=== PATIENT | female | born 1965 | race Caucasian/White ===

== ENCOUNTER 2019-06-11 14:07 | Emergency (ER) | payer MEDICAID ==
[~2019-06-11] VITALS: Ht 170.2 cm; Wt 120.2 kg
[~2019-06-11 14:07] MED LIST: DIVA500T53 PO; ENAL10TA PO; FAM20T PO; HYDR-3682 PO; LABE200T18 PO; LEVO500T21 PO; RIS1T PO; SERT-160 PO; SERT100T; TRAM-297 PO
[2019-06-11] MEDS ORDERED: cloNIDine HCL 0.1 MG TAB PO ONE ×2 (14:30→19:30)
[2019-06-11] MEDS ORDERED: LIDOCAINE 1% HCL (LOCAL ANESTH.) INJ 20ML MDV ONE (18:48)
[2019-06-11] MEDS ORDERED: LIDOCAINE 1% HCL (LOCAL ANESTH.) INJ 20ML MDV IJ ONE (19:00)
[2019-06-11] MEDS ORDERED: NEOMYCIN-BACITRACIN-POLYM UNITDOSE PKG TOP OINT TOP ONE (19:15)
[2019-06-11] MEDS ORDERED: cloNIDine HCL 0.1 MG TAB ONE (19:22)
[2019-06-11] MEDS ORDERED: LABETALOL HCL 5 MG/ML 4ML SYRINGE IV ONE (20:30)
[2019-06-11 21:07] LABS: Basophils # (auto) 0.2 uL; Basophils % (auto) 1.6 % (0.0-2.0); Eosinophils # (auto) 0.2 uL; Eosinophils % (auto) 2.3 % (0.0-7.0); Hematocrit 44.6 % (36.0-46.0); Hemoglobin 15.5 g/dL (12.2-16.2); Lymphocytes # (auto) 2.4 uL; Lymphocytes % (auto) 25.4 % (10.0-50.0); Mean Corpuscular Hemoglobin 29.7 pg (28.0-32.0); Mean Corpuscular Hgb Conc. 34.8 g/dL (32.0-36.0); Mean Corpuscular Volume 85.3 fL (80.0-100.0); Monocytes # (auto) 0.8 uL; Monocytes % (auto) 8.2 % (0.0-12.0); Neutrophils % (auto) 62.5 % (37.0-80.0); Platelet Count (auto) 328 10^3/uL (140-450); Red Blood Cells 5.23 10^6/uL (4.0-5.20); Red Cell Distribution Width 14.1 % (11.8-14.3); White Blood Cell 9.6 10^3/uL (4.4-10.8)
[2019-06-11 21:24] LABS: Albumin 3.5 g/dL (3.4-5.0); Calcium 8.6 mg/dL (8.5-10.1); Potassium 3.9 mmol/L (3.5-5.1)
[2019-06-11 21:30] LABS: Bilirubin, Total 0.4 mg/dL (0.2-1.0)
[2019-06-11 21:37] LABS: BUN/Creatinine Ratio 18.5
[2019-06-11] MEDS ORDERED: HYDROcodone-ACET 5/325MG TAB PO ONE (21:45)
[2019-06-11] MEDS ORDERED: AMOXICILLIN/CLAVUL 875 MG TAB PO ONE (21:45)
[2019-06-11 22:37] VITALS: BP 137/76
== END 2019-06-11 20:12 | disposition home or self-care (01) ==
LOC: ER 14:07
DX: S81.811A Laceration without foreign body, right lower leg, initial encounter (principal); I11.0 Hypertensive heart disease with heart failure; I50.9 Heart failure, unspecified; F17.210 Nicotine dependence, cigarettes, uncomplicated; Z79.899 Other long term (current) drug therapy; W54.0XXA Bitten by dog, initial encounter; Y93.89 Activity, other specified; Y92.89 Other specified places as the place of occurrence of the external cause; Y99.8 Other external cause status
CPT/HCPCS: 12032; 36415; 73590; 80053; 84484; 85025; 93005; 96374; 99285; J2001

== ENCOUNTER → 2019-08-27 | Emergency (ER) | payer MEDICAID ==
[~2019-08-27] VITALS: Ht 170.2 cm; Wt 120.2 kg
[~2019-08-27] MED LIST changes: +LABETALOL HCL 5 MG/ML 4ML SYRINGE IV ONE; +amLODIPine BESYLATE 5 MG TAB PO ONE
[2019-08-27 10:56] LABS: Basophils # (auto) 0.1 10 ^3/uL (0-0.2); Basophils % (auto) 0.7 % (0.0-2.0); Eosinophils # (auto) 0.3 10 ^3/uL (0-0.8); Eosinophils % (auto) 3.1 % (0.0-7.0); Hematocrit 46.2 % (36.0-46.0); Hemoglobin 15.7 g/dL (12.2-16.2); Lymphocytes # (auto) 2.1 10 ^3/uL (0.4-5.4); Lymphocytes % (auto) 24.2 % (10.0-50.0); Mean Corpuscular Volume 85.4 fL (80.0-100.0); Monocytes # (auto) 0.6 10 ^3/uL (0-1.3); Neutrophils # (auto) 5.6 10 ^3/uL (1.6-8.6); Nucleated Red Blood Cells % 0.1 %; Platelet Count (auto) 370 10^3/uL (140-450); Red Blood Cells 5.42 10^6/uL (4.0-5.20); White Blood Cell 8.6 10^3/uL (4.4-10.8)
[2019-08-27 11:03] LABS: Albumin 3.5 g/dL (3.4-5.0); Anion Gap 5 (5-15); Blood Urea Nitrogen 27 mg/dL (7-18); Calcium 8.3 mg/dL (8.5-10.1); Carbon Dioxide 25 mmol/L (21-32); Chloride 108 mmol/L (98-107); Glucose 116 mg/dL (74-106); Sodium 138 mmol/L (136-145)
[2019-08-27 11:09] LABS: Alanine Aminotransferase 38 U/L (13-56); Alkaline Phosphatase 91 U/L (45-117); Aspartate Aminotransferase 19 U/L (15-37); BUN/Creatinine Ratio 32.1; Bilirubin, Total 0.4 mg/dL (0.2-1.0); GFR African American 91 mL/min; GFR Non-African American 75 mL/min; Total Protein 7.5 g/dL (6.4-8.2)
[2019-08-27 12:05] VITALS: BP 187/93
== END | disposition home or self-care (01) ==
LOC: ER 09:43
DX: R04.0 Epistaxis (principal); I11.0 Hypertensive heart disease with heart failure; I50.9 Heart failure, unspecified; F17.210 Nicotine dependence, cigarettes, uncomplicated; Z90.49 Acquired absence of other specified parts of digestive tract; Z79.899 Other long term (current) drug therapy
CPT/HCPCS: 30901; 36415; 80053; 84484; 85025; 93005; 96374; 99284; J3490

== ENCOUNTER 2021-02-08 09:01 | Emergency (ER) | payer MEDICAID ==
[~2021-02-08] VITALS: Ht 172.7 cm; Wt 120.2 kg
[~2021-02-08 09:01] MED LIST changes: +DIVA500T2 PO; -DIVA500T53 PO; -ENAL10TA PO; +ENAL10TA12 PO; -FAM20T PO; +FAMO20TA10 PO; -LABE200T18 PO; +LABE200T7 PO; -LABETALOL HCL 5 MG/ML 4ML SYRINGE IV ONE; -LEVO500T21 PO; +LEVO500T31 PO; -amLODIPine BESYLATE 5 MG TAB PO ONE
[2021-02-08] MEDS ORDERED: cefTRIAXone 1GM/50ML D5W 50 ML IV ONE (10:00)
[2021-02-08] MEDS ORDERED: DexAMETHasone SOD PHOS 10MG/1ML VIAL INJ IV ONE (10:00)
[2021-02-08] MEDS ORDERED: AZITHROMYCIN 500MG/ 250ML 250 ML IV ONE (10:00)
[2021-02-08 10:20] LABS: Basophils # (auto) 0 10 ^3/uL (0-0.2); Basophils % (auto) 0.6 % (0.0-2.0); Eosinophils # (auto) 0 10 ^3/uL (0-0.8); Eosinophils % (auto) 0.1 % (0.0-7.0); Hematocrit 42.7 % (36.0-46.0); Hemoglobin 14.4 g/dL (12.2-16.2); Lymphocytes % (auto) 19.5 % (10.0-50.0); Mean Corpuscular Hemoglobin 29.1 pg (28.0-32.0); Mean Corpuscular Hgb Conc. 33.7 g/dL (32.0-36.0); Mean Corpuscular Volume 86.2 fL (80.0-100.0); Monocytes # (auto) 0.5 10 ^3/uL (0-1.3); Monocytes % (auto) 10.4 % (0.0-12.0); Neutrophils # (auto) 3.5 10 ^3/uL (1.6-8.6); Neutrophils % (auto) 69.4 % (37.0-80.0); Nucleated Red Blood Cells % 0.1 %; Red Blood Cells 4.95 10^6/uL (4.0-5.20); Red Cell Distribution Width 13.8 % (11.8-14.3)
[2021-02-08 10:45] LABS: Calcium 8.3 mg/dL (8.5-10.1); Potassium 3.8 mmol/L (3.5-5.1)
[2021-02-08 10:48] LABS: BUN/Creatinine Ratio 14.8; Bilirubin, Total 0.2 mg/dL (0.2-1.0); Total Protein 6.9 g/dL (6.4-8.2)
[2021-02-08 10:50] VITALS: BP 112/79
== END 2021-02-08 12:15 | disposition left against medical advice (07) ==
LOC: ER 09:01
DX: U07.1 COVID-19 (principal); J12.82 Pneumonia due to coronavirus disease 2019; R06.03 Acute respiratory distress; I11.0 Hypertensive heart disease with heart failure; I50.9 Heart failure, unspecified; F17.210 Nicotine dependence, cigarettes, uncomplicated; Z90.49 Acquired absence of other specified parts of digestive tract
CPT/HCPCS: 36415; 71045; 80053; 82728; 83605; 84484; 85025; 86141; 87040; 87426; 96365; 96368; 96375; 99291; J0456; J0696; J1100

== ENCOUNTER 2021-02-10 10:22 | Inpatient (IN) | payer MEDICAID ==
[~2021-02-10] VITALS: Ht 175.3 cm; Wt 112.5 kg
[2021-02-10] MEDS ORDERED: SODIUM CHLORIDE 0.9% 500 ML IV ONE (11:00)
[2021-02-10 11:24] LABS: Basophils # (auto) 0 10 ^3/uL (0-0.2); Basophils % (auto) 0.2 % (0.0-2.0); Eosinophils # (auto) 0 10 ^3/uL (0-0.8); Eosinophils % (auto) 0.1 % (0.0-7.0); Hematocrit 40.4 % (36.0-46.0); Hemoglobin 14.3 g/dL (12.2-16.2); Lymphocytes # (auto) 0.8 10 ^3/uL (0.4-5.4); Lymphocytes % (auto) 13.4 % (10.0-50.0); Mean Corpuscular Hgb Conc. 35.5 g/dL (32.0-36.0); Mean Corpuscular Volume 84.4 fL (80.0-100.0); Monocytes # (auto) 0.5 10 ^3/uL (0-1.3); Neutrophils # (auto) 4.7 10 ^3/uL (1.6-8.6); Neutrophils % (auto) 78.3 % (37.0-80.0); Nucleated Red Blood Cells % 0.1 %; Red Blood Cells 4.78 10^6/uL (4.0-5.20); Red Cell Distribution Width 13.8 % (11.8-14.3)
[2021-02-10 11:34] LABS: Albumin 2.8 g/dL (3.4-5.0); Potassium 3.9 mmol/L (3.5-5.1)
[2021-02-10 11:40] LABS: BUN/Creatinine Ratio 17.6; Bilirubin, Total 0.3 mg/dL (0.2-1.0); Total Protein 6.7 g/dL (6.4-8.2)
[2021-02-10 11:41] LABS: INR 0.98 (0.9-1.15); Partial Thromboplastin Time 29.2 sec (23.6-33.0)
[2021-02-10] MEDS ORDERED: hydrOXYchloroQUINE SULFATE 200 MG TAB PO ONE (12:00)
[2021-02-10] MEDS ORDERED: ZINC SULFATE 220mg CAP or TAB PO ONE (12:00)
[2021-02-10] MEDS ORDERED: cefTRIAXone 1GM/50ML D5W 50 ML IV ONE (12:00)
[2021-02-10] MEDS ORDERED: DexAMETHasone SOD PHOS 10MG/1ML VIAL INJ IV ONE (12:00)
[2021-02-10] MEDS ORDERED: ASCORBIC ACID 500 MG TAB PO ONE (12:00)
[2021-02-10] MEDS ORDERED: CHOLECALCIFEROL (VITD3) 2,000 UNIT CAP/TAB PO ONE (12:00)
[2021-02-10] MEDS ORDERED: AZITHROMYCIN 500MG/ 250ML 250 ML IV ONE (12:00)
[2021-02-10] MEDS: SODIUM CHLORIDE 0.9% 1,000 ML IV ONE ×2 (13:45→15:40)
[2021-02-10] MEDS ORDERED: ONDANSETRON HCL 4 MG/2 ML VIAL IV PRN (16:15)
[2021-02-10] MEDS ORDERED: TEMAZEPAM 15 MG CAP PO PRN (16:15)
[2021-02-10] MEDS ORDERED: MORPHINE SULFATE 4 MG/ML SYR/VIAL IV PRN (16:15)
[2021-02-10] MEDS ORDERED: MORPHINE SULFATE INJECTION 2 MG/ML SYRG IV PRN (16:15)
[2021-02-10] MEDS ORDERED: ACETAMINOPHEN 325 MG TAB PO PRN (16:15)
[2021-02-10] MEDS ORDERED: DOCUSATE SOD 100 MG CAP PO PRN (16:15)
[2021-02-10] MEDS ORDERED: REMDESIVIR PER PHARMACY 0 ML IV SCH (16:15)
[2021-02-10] MEDS ORDERED: NITROGLYCERIN 0.4 MG SL TAB SL PRN (16:15)
[2021-02-10 17:12] LABS: Thyroid Stimulating Hormone 1.89 uIU/mL (0.358-3.74)
[2021-02-10] MEDS ORDERED: REMDESIVIR 200 MG in NS 210ml LOADING DOSE ADULT IV ONE (17:30)
[2021-02-10 19:32] VITALS: BP 129/74
[2021-02-10] MEDS: ALBUTEROL SULF HFA 90MCG INH 200DOSE IN PRN (22:51)
[2021-02-10] MEDS: FAMOTIDINE (10MG/ML) 2ML VL IV SCH (22:59)
[2021-02-10] MEDS: DOXYCYCLINE 100MG/250ML 250 ML IV SCH (22:59)
[2021-02-10] MEDS: ENOXAPARIN SOD 40 MG/0.4 ML SYRINGE SC SCH (23:00)
[2021-02-10 23:20] VITALS: BP 142/97
[2021-02-11] VITALS (7 sets, daily range): BP systolic 117–150; BP diastolic 68–101
[2021-02-11] MEDS ORDERED: AMLO-496 PO (01:59)
[2021-02-11] MEDS ORDERED: LISI40TA11 PO (01:59)
[2021-02-11] MEDS ORDERED: LABE100T4 PO (01:59)
[2021-02-11] MEDS ORDERED: HYDR25TA5 PO (01:59)
[2021-02-11] MEDS: ALBUTEROL SULF HFA 90MCG INH 200DOSE IN PRN (06:51)
[2021-02-11 07:08] LABS: Basophils # (auto) 0 10 ^3/uL (0-0.2); Basophils % (auto) 0.3 % (0.0-2.0); Eosinophils # (auto) 0 10 ^3/uL (0-0.8); Eosinophils % (auto) 0.1 % (0.0-7.0); Hematocrit 39.2 % (36.0-46.0); Lymphocytes # (auto) 0.6 10 ^3/uL (0.4-5.4); Lymphocytes % (auto) 15.7 % (10.0-50.0); Mean Corpuscular Hgb Conc. 35.7 g/dL (32.0-36.0); Mean Corpuscular Volume 84.1 fL (80.0-100.0); Monocytes # (auto) 0.4 10 ^3/uL (0-1.3); Monocytes % (auto) 11.1 % (0.0-12.0); Neutrophils # (auto) 2.8 10 ^3/uL (1.6-8.6); Neutrophils % (auto) 72.8 % (37.0-80.0); Nucleated Red Blood Cells % 0.2 %; Red Blood Cells 4.66 10^6/uL (4.0-5.20); Red Cell Distribution Width 13.8 % (11.8-14.3); White Blood Cell 3.9 10^3/uL (4.4-10.8)
[2021-02-11 07:24] LABS: Potassium 4.2 mmol/L (3.5-5.1)
[2021-02-11 07:36] LABS: Urine Bacteria NONE SEEN /hpf (None Seen); Urine Blood Negative /uL (Negative); Urine Specific Gravity 1.021 (1.001-1.035); Urine WBC <1 /hpf (0 - 5)
[2021-02-11 07:38] LABS: Albumin 2.5 g/dL (3.4-5.0); BUN/Creatinine Ratio 22.6; Bilirubin, Total 0.2 mg/dL (0.2-1.0); Calcium 7.9 mg/dL (8.5-10.1); Total Protein 6.4 g/dL (6.4-8.2)
[2021-02-11] MEDS: DexAMETHasone SOD PHOS 10MG/1ML VIAL INJ IV SCH (09:06)
[2021-02-11] MEDS: DOXYCYCLINE 100MG/250ML 250 ML IV SCH ×2 (09:07→21:08)
[2021-02-11] MEDS: CHOLECALCIFEROL (VITD3) 2,000 UNIT CAP/TAB PO SCH (09:07)
[2021-02-11] MEDS: FAMOTIDINE (10MG/ML) 2ML VL IV SCH ×2 (09:07→21:08)
[2021-02-11] MEDS: ASCORBIC ACID 1,000 MG TAB PO SCH (09:07)
[2021-02-11] MEDS: ENOXAPARIN SOD 40 MG/0.4 ML SYRINGE SC SCH ×2 (09:08→21:07)
[2021-02-11] MEDS: REMDESIVIR 100mg 100 MG in SODIUM CHL 0.9% 230 ML IV SCH (15:03)
[2021-02-11] MEDS: LORazepam 0.5 MG TAB PO PRN (18:53)
[2021-02-12 04:55] VITALS: BP 143/79
[2021-02-12] MEDS: ALBUTEROL SULF HFA 90MCG INH 200DOSE IN PRN ×2 (06:01→11:12)
[2021-02-12] MEDS: LORazepam 0.5 MG TAB PO PRN ×2 (09:12→14:11)
[2021-02-12] MEDS: DexAMETHasone SOD PHOS 10MG/1ML VIAL INJ IV SCH (09:16)
[2021-02-12] MEDS: FAMOTIDINE (10MG/ML) 2ML VL IV SCH ×2 (09:17→23:20)
[2021-02-12] MEDS: CHOLECALCIFEROL (VITD3) 2,000 UNIT CAP/TAB PO SCH (09:17)
[2021-02-12] MEDS: DOXYCYCLINE 100MG/250ML 250 ML IV SCH ×2 (09:17→23:20)
[2021-02-12] MEDS: ASCORBIC ACID 1,000 MG TAB PO SCH (09:17)
[2021-02-12] MEDS: ENOXAPARIN SOD 40 MG/0.4 ML SYRINGE SC SCH ×2 (09:17→23:20)
[2021-02-12 13:00] VITALS: BP 148/70
[2021-02-12] MEDS: REMDESIVIR 100mg 100 MG in SODIUM CHL 0.9% 230 ML IV SCH (16:28)
[2021-02-12 22:00] VITALS: BP 155/91
[2021-02-13 05:00] VITALS: BP 154/95
[2021-02-13] MEDS: LORazepam 0.5 MG TAB PO PRN ×2 (06:16→12:26)
[2021-02-13] MEDS: ALBUTEROL SULF HFA 90MCG INH 200DOSE IN PRN ×2 (06:16→21:21)
[2021-02-13 06:32] LABS: Potassium 3.8 mmol/L (3.5-5.1)
[2021-02-13 06:39] LABS: Albumin 2.8 g/dL (3.4-5.0); BUN/Creatinine Ratio 27.6; Bilirubin, Total 0.4 mg/dL (0.2-1.0); Calcium 8.7 mg/dL (8.5-10.1); Total Protein 6.9 g/dL (6.4-8.2)
[2021-02-13 09:00] VITALS: BP 171/85
[2021-02-13] MEDS: CHOLECALCIFEROL (VITD3) 2,000 UNIT CAP/TAB PO SCH (10:21)
[2021-02-13] MEDS: ASCORBIC ACID 1,000 MG TAB PO SCH (10:21)
[2021-02-13] MEDS: hydrALAZINE HCL 20 MG/ML VL IV PRN ×2 (10:22→21:28)
[2021-02-13] MEDS: DexAMETHasone SOD PHOS 10MG/1ML VIAL INJ IV SCH (10:22)
[2021-02-13] MEDS: FAMOTIDINE (10MG/ML) 2ML VL IV SCH ×2 (10:22→21:28)
[2021-02-13] MEDS: DOXYCYCLINE 100MG/250ML 250 ML IV SCH ×2 (10:23→21:28)
[2021-02-13] MEDS: ENOXAPARIN SOD 40 MG/0.4 ML SYRINGE SC SCH ×2 (10:23→21:29)
[2021-02-13 13:00] VITALS: BP 167/96
[2021-02-13] MEDS: REMDESIVIR 100mg 100 MG in SODIUM CHL 0.9% 230 ML IV SCH (15:29)
[2021-02-13 17:00] VITALS: BP 156/99
[2021-02-13 19:39] VITALS: BP 156/99
[2021-02-13 22:00] VITALS: BP 176/105
[2021-02-14] MEDS: diphenhdrAMINE HCL 25 MG CAP PO PRN ×2 (00:51→20:35)
[2021-02-14 05:00] VITALS: BP 134/66
[2021-02-14 07:19] LABS: Basophils # (auto) 0 10 ^3/uL (0-0.2); Basophils % (auto) 0.1 % (0.0-2.0); Eosinophils # (auto) 0 10 ^3/uL (0-0.8); Eosinophils % (auto) 0.1 % (0.0-7.0); Hematocrit 43.8 % (36.0-46.0); Hemoglobin 15.5 g/dL (12.2-16.2); Lymphocytes # (auto) 1.7 10 ^3/uL (0.4-5.4); Lymphocytes % (auto) 20.2 % (10.0-50.0); Mean Corpuscular Hemoglobin 29.2 pg (28.0-32.0); Mean Corpuscular Hgb Conc. 35.5 g/dL (32.0-36.0); Mean Corpuscular Volume 82.5 fL (80.0-100.0); Monocytes # (auto) 1.3 10 ^3/uL (0-1.3); Monocytes % (auto) 14.7 % (0.0-12.0); Neutrophils # (auto) 5.6 10 ^3/uL (1.6-8.6); Neutrophils % (auto) 64.9 % (37.0-80.0); Nucleated Red Blood Cells % 1.8 %; Red Blood Cells 5.31 10^6/uL (4.0-5.20); Red Cell Distribution Width 13.8 % (11.8-14.3); White Blood Cell 8.7 10^3/uL (4.4-10.8)
[2021-02-14 07:37] LABS: Albumin 2.8 g/dL (3.4-5.0); BUN/Creatinine Ratio 25.6; Bilirubin, Total 0.5 mg/dL (0.2-1.0); CRP High Sensitivity 0.85 mg/dL (< 0.3); Calcium 8.2 mg/dL (8.5-10.1); Potassium 3.9 mmol/L (3.5-5.1); Total Protein 6.6 g/dL (6.4-8.2)
[2021-02-14] MEDS: LORazepam 0.5 MG TAB PO PRN ×2 (07:47→16:25)
[2021-02-14 09:00] VITALS: BP 144/95
[2021-02-14] MEDS: DOXYCYCLINE 100MG/250ML 250 ML IV SCH ×2 (10:35→21:11)
[2021-02-14] MEDS: DexAMETHasone SOD PHOS 10MG/1ML VIAL INJ IV SCH (10:35)
[2021-02-14] MEDS: ASCORBIC ACID 1,000 MG TAB PO SCH (10:35)
[2021-02-14] MEDS: ENOXAPARIN SOD 40 MG/0.4 ML SYRINGE SC SCH ×2 (10:35→21:12)
[2021-02-14] MEDS: CHOLECALCIFEROL (VITD3) 2,000 UNIT CAP/TAB PO SCH (10:35)
[2021-02-14] MEDS: FAMOTIDINE (10MG/ML) 2ML VL IV SCH ×2 (10:36→21:11)
[2021-02-14 13:00] VITALS: BP 160/102
[2021-02-14] MEDS: hydrALAZINE HCL 20 MG/ML VL IV PRN ×2 (13:38→22:12)
[2021-02-14] MEDS: REMDESIVIR 100mg 100 MG in SODIUM CHL 0.9% 230 ML IV SCH (15:26)
[2021-02-14 17:00] VITALS: BP 168/96
[2021-02-14] MEDS: ALBUTEROL SULF HFA 90MCG INH 200DOSE IN PRN ×2 (20:16→20:51)
[2021-02-14 22:00] VITALS: BP 179/113
[2021-02-15] MEDS: LORazepam 0.5 MG TAB PO PRN (00:32)
[2021-02-15] MEDS: diphenhdrAMINE HCL 25 MG CAP PO PRN (02:22)
[2021-02-15 05:00] VITALS: BP 146/99
[2021-02-15] MEDS: ALBUTEROL SULF HFA 90MCG INH 200DOSE IN PRN ×2 (06:27→22:29)
[2021-02-15] MEDS: HYDROcodone-ACET 5/325MG TAB PO PRN ×3 (08:23→21:26)
[2021-02-15 09:00] VITALS: BP 146/97
[2021-02-15] MEDS: ENOXAPARIN SOD 40 MG/0.4 ML SYRINGE SC SCH ×2 (09:30→21:27)
[2021-02-15] MEDS: CHOLECALCIFEROL (VITD3) 2,000 UNIT CAP/TAB PO SCH (09:30)
[2021-02-15] MEDS: ASCORBIC ACID 1,000 MG TAB PO SCH (09:30)
[2021-02-15] MEDS: DexAMETHasone SOD PHOS 10MG/1ML VIAL INJ IV SCH (12:08)
[2021-02-15] MEDS: FAMOTIDINE (10MG/ML) 2ML VL IV SCH ×2 (12:08→21:27)
[2021-02-15] MEDS: DOXYCYCLINE 100MG/250ML 250 ML IV SCH (12:09)
[2021-02-15 13:00] VITALS: BP 134/99
[2021-02-15 16:51] VITALS: BP 148/94
[2021-02-15 22:00] VITALS: BP 145/97
[2021-02-16] MEDS: HYDROcodone-ACET 5/325MG TAB PO PRN ×3 (01:28→13:59)
[2021-02-16 05:00] VITALS: BP 135/82
[2021-02-16 09:00] VITALS: BP 134/98
[2021-02-16] MEDS: ALBUTEROL SULF HFA 90MCG INH 200DOSE IN PRN ×2 (09:36→14:00)
[2021-02-16] MEDS: ASCORBIC ACID 1,000 MG TAB PO SCH (10:17)
[2021-02-16] MEDS: DexAMETHasone SOD PHOS 10MG/1ML VIAL INJ IV SCH (10:17)
[2021-02-16] MEDS: FAMOTIDINE (10MG/ML) 2ML VL IV SCH (10:17)
[2021-02-16] MEDS: CHOLECALCIFEROL (VITD3) 2,000 UNIT CAP/TAB PO SCH (10:17)
[2021-02-16] MEDS: ENOXAPARIN SOD 40 MG/0.4 ML SYRINGE SC SCH (10:18)
[2021-02-16 13:00] VITALS: BP 139/99
[2021-02-16 17:00] VITALS: BP 141/104
[2021-02-16] MEDS: hydrALAZINE HCL 20 MG/ML VL IV PRN (17:46)
== END 2021-02-16 18:30 | disposition home or self-care (01) | DRG 137 ==
LOC: ER 10:22 → EDBD 10:22 → TELE 16:03 → TELE-EAST 23:15
PROVIDERS: ADMIT Nurse Practitioner; ATTEND Nurse Practitioner
PROC: XW033E5 Introduction of Remdesivir Anti-infective into Peripheral Vein, Percutaneous Approach, New Technology Group 5 (ICD-10-PCS; principal; 2021-02-11)
DX: U07.1 COVID-19 (principal); J96.01 Acute respiratory failure with hypoxia; J12.82 Pneumonia due to coronavirus disease 2019; E44.0 Moderate protein-calorie malnutrition; E66.01 Morbid (severe) obesity due to excess calories; J98.11 Atelectasis; F41.9 Anxiety disorder, unspecified; F32.9 Major depressive disorder, single episode, unspecified; F17.210 Nicotine dependence, cigarettes, uncomplicated; Z68.38 Body mass index [BMI] 38.0-38.9, adult; Z90.49 Acquired absence of other specified parts of digestive tract
CPT/HCPCS: 36415; 71045; 80053; 81001; 82306; 82728; 83036; 83605; 83615; 83735; 83880; 84443; 84484; 85025; 85379; 85610; 85730; 86141; 87040; 87081; 87426; 93005; 93970; 94640; 96361; 96365; 96368; 96375; G0378; J0696; J1100; J3490

== ENCOUNTER 2022-10-06 16:58 | Inpatient (IN) | payer MEDICAID ==
[~2022-10-06] VITALS: Ht 157.5 cm; Wt 118.0 kg
[~2022-10-06 16:58] MED LIST changes: +AMLO1TAB23 PO; -DIVA500T2 PO; +DIVA500T3 PO; -ENAL10TA12 PO; +ENAL1TAB46 PO; +HYDR25TA5 PO; +LABE100T4 PO; +LISI40TA16 PO
[2022-10-06] MEDS ORDERED: NALOXONE HCL 0.4 MG/ML VIAL IV ONE (18:30)
[2022-10-06 19:28] LABS: Basophils # (auto) 0.1 10 ^3/uL (0-0.2); Basophils % (auto) 0.8 % (0.0-2.0); Eosinophils # (auto) 0.1 10 ^3/uL (0-0.8); Eosinophils % (auto) 0.7 % (0.0-7.0); Hematocrit 45.4 % (36.0-46.0); Hemoglobin 14.9 g/dL (12.2-16.2); Lymphocytes # (auto) 1.4 10 ^3/uL (0.4-5.4); Lymphocytes % (auto) 10.6 % (10.0-50.0); Mean Corpuscular Hemoglobin 27.6 pg (28.0-32.0); Mean Corpuscular Hgb Conc. 32.8 g/dL (32.0-36.0); Mean Corpuscular Volume 84.2 fL (80.0-100.0); Monocytes # (auto) 0.7 10 ^3/uL (0-1.3); Monocytes % (auto) 5.1 % (0.0-12.0); Neutrophils # (auto) 10.6 10 ^3/uL (1.6-8.6); Neutrophils % (auto) 82.8 % (37.0-80.0); Nucleated Red Blood Cells % 0.1 %; Red Blood Cells 5.39 10^6/uL (4.0-5.20); Red Cell Distribution Width 14.2 % (11.8-14.3); White Blood Cell 12.8 10^3/uL (4.4-10.8)
[2022-10-06 19:44] LABS: Acetaminophen < 2.0 ug/mL (10-30); Salicylate 2.4 mg/dL (2.8-20.0)
[2022-10-06 19:45] LABS: Albumin 3.8 g/dL (3.4-5.0); Anion Gap 5 (5-15); Blood Alcohol < 3.0 mg/dL (0-5); Blood Urea Nitrogen 36 mg/dL (7-18); Calcium 8.8 mg/dL (8.5-10.1); Carbon Dioxide 26 mmol/L (21-32); Chloride 111 mmol/L (98-107); GFR African American 60 mL/min; GFR Non-African American 49 mL/min; Glucose 144 mg/dL (74-106); Magnesium 2.4 mg/dL (1.6-2.6); Sodium 142 mmol/L (136-145)
[2022-10-06 19:49] LABS: Alanine Aminotransferase 52 U/L (13-56); Alkaline Phosphatase 86 U/L (45-117); Aspartate Aminotransferase 37 U/L (15-37); Bilirubin, Total 0.3 mg/dL (0.2-1.0); Total Protein 7.4 g/dL (6.4-8.2)
[2022-10-06 19:51] LABS: INR 1.02 (0.9-1.15); Partial Thromboplastin Time 24.5 SEC (24.5-34.5)
[2022-10-06] MEDS ORDERED: NALOXONE HCL 1MG/ML 2ML SYRINGE ONE (21:43)
[2022-10-07] MEDS ORDERED: ACETAMINOPHEN 325 MG TAB PO PRN (00:15)
[2022-10-07] MEDS ORDERED: SODIUM CHLORIDE 0.9% 1,000 ML IV SCH (00:15)
[2022-10-07] MEDS ORDERED: NITROGLYCERIN 0.4 MG SL TAB SL PRN (00:15)
[2022-10-07] MEDS ORDERED: MORPHINE SULFATE INJ 2 MG/ml SYRG IV PRN (00:15)
[2022-10-07 05:30] VITALS: BP 148/76
[2022-10-07] MEDS ORDERED: ASCORBIC ACID 500 MG TAB PO SCH (10:00)
[2022-10-07] MEDS ORDERED: MULTIPLE VITAMIN TAB PO SCH (10:00)
[2022-10-07] MEDS ORDERED: ZINC SULFATE 220mg CAP or TAB PO SCH (10:00)
== END 2022-10-07 08:23 | disposition left against medical advice (07) | DRG 812 ==
LOC: ER 16:58 → EDBD 16:58 → TELE 10-07 00:09
PROVIDERS: ADMIT Internal Medicine; ATTEND Internal Medicine
DX: T40.411A Poisoning by fentanyl or fentanyl analogs, accidental (unintentional), initial encounter (principal); E66.01 Morbid (severe) obesity due to excess calories; F20.9 Schizophrenia, unspecified; F32.A Depression, unspecified; F41.9 Anxiety disorder, unspecified; I10 Essential (primary) hypertension; Z53.29 Procedure and treatment not carried out because of patient's decision for other reasons; F17.210 Nicotine dependence, cigarettes, uncomplicated; Z90.49 Acquired absence of other specified parts of digestive tract; Z79.899 Other long term (current) drug therapy; Y92.89 Other specified places as the place of occurrence of the external cause; Z82.49 Family history of ischemic heart disease and other diseases of the circulatory system; Z68.42 Body mass index [BMI] 45.0-49.9, adult
CPT/HCPCS: 36415; 70450; 71045; 80053; 80320; 80329; 83605; 83735; 84484; 85025; 85379; 85610; 85730; 87040; G0378

== ENCOUNTER 2023-10-09 15:05 | Emergency (ER) | payer MEDICAID ==
[~2023-10-09] VITALS: Ht 170.2 cm; Wt 104.7 kg
[~2023-10-09 15:05] MED LIST changes: +DIVA-91 PO; -DIVA500T3 PO; -LABE100T4 PO; +LABE100T7 PO; +LABE200T33 PO; -LABE200T7 PO
[2023-10-09 16:41] VITALS: BP 127/79; PULSE 67; RESP 16; O2SAT 98
[2023-10-09] MEDS ORDERED: HYDR25TA5 PO (16:45)
[2023-10-09] MEDS ORDERED: CEPH500C PO (16:45)
[2023-10-09] MEDS ORDERED: QUET50TA PO (16:45)
== END 2023-10-09 17:14 | disposition home or self-care (01) ==
LOC: ER 15:05
DX: S80.811A Abrasion, right lower leg, initial encounter (principal); I11.0 Hypertensive heart disease with heart failure; I50.9 Heart failure, unspecified; F41.9 Anxiety disorder, unspecified; F32.9 Major depressive disorder, single episode, unspecified; F20.9 Schizophrenia, unspecified; F17.210 Nicotine dependence, cigarettes, uncomplicated; F15.90 Other stimulant use, unspecified, uncomplicated; Z76.0 Encounter for issue of repeat prescription; Z98.890 Other specified postprocedural states; Z79.899 Other long term (current) drug therapy; X58.XXXA Exposure to other specified factors, initial encounter; Y93.89 Activity, other specified; Y92.89 Other specified places as the place of occurrence of the external cause; Y99.8 Other external cause status